=== PATIENT | male | born 1985 | race African-American/Black ===

== ENCOUNTER 2017-08-22 01:50 | Emergency (ER) | payer SELFPAY ==
[~2017-08-22] VITALS: Ht 175.3 cm; Wt 93.2 kg
[2017-08-22 04:40] LABS: CLARITY URINE CLEAR (CLEAR); COLOR URINE YELLOW (YELLOW); KETONES URINE NEGATIVE (NEGATIVE); LEUKOCYTE ESTERASE URINE NEGATIVE (NEGATIVE); NITRITE URINE NEGATIVE (NEGATIVE); OCCULT BLOOD URINE NEGATIVE (NEGATIVE); PROTEIN URINE NEGATIVE (NEGATIVE); SPECIFIC GRAVITY URINE 1.008 (1.005-1.030); UROBILINOGEN URINE 0.2 E.U./dL (0.2-1.0)
[2017-08-22 04:40] LABS: BASOPHILS % 0.4 % (0.0-2.0); EOSINOPHILS % 0.4 % (0.0-5.0); HEMATOCRIT. 49.4 % (42.0-52.0); HEMOGLOBIN. 16.5 g/dL (14.0-18.0); LYMPHOCYTES % 13.7 % (20.0-50.0); MEAN CORPUSCULAR HEMOGLOBIN 29.1 pg (28.0-32.0); MEAN PLATELET VOLUME 7.6 fl (7.4-10.4); NEUTROPHILS % 74.5 % (40.0-76.0); PLATELET 256 x1000/uL (130-400); RED BLOOD CELL COUNT 5.68 mill/uL (4.7-6.1); RED CELL DISTRIBUTION WIDTH 13.7 % (11.6-14.6)
[2017-08-22 04:44] LABS: CHLORIDE 102 mEq/L (98-107)
[2017-08-22 04:51] LABS: *AMPHETAMINES SCREEN URINE PRESUMTIVE POSITIVE (NEGATIVE); *BARBITURATES SCREEN URINE NEGATIVE (NEGATIVE); *BENZODIAZEPINES SCREEN URINE NEGATIVE (NEGATIVE); *COCAINE SCREEN URINE NEGATIVE (NEGATIVE); CANNABINOID URINE SCREEN PRESUMTIVE POSITIVE (NEGATIVE); METHADONE URINE SCREEN NEGATIVE (NEGATIVE); OPIATES URINE SCREEN NEGATIVE (NEGATIVE); PHENCYCLIDINE URINE SCREEN NEGATIVE (NEGATIVE)
[2017-08-22 04:53] LABS: CARBON DIOXIDE 25 mEq/L (21-32); ETHANOL BLOOD < 10 mg/dL
[2017-08-22 07:44] VITALS: BP 123/81
== END 2017-08-22 07:45 | disposition home or self-care (01) ==
LOC: ER 03:19
DX: F19.10 Other psychoactive substance abuse, uncomplicated (principal); F12.10 Cannabis abuse, uncomplicated; Z98.890 Other specified postprocedural states
CPT/HCPCS: 36415; 71010; 80053; 80305; 81003; 83690; 85025; 93005; 99285; G0482; Z7610

== ENCOUNTER 2018-03-25 15:16 | Emergency (ER) | payer MEDICAID ==
[~2018-03-25] VITALS: Ht 177.8 cm; Wt 78.0 kg
[2018-03-25 15:17] VITALS: BP 109/71
== END 2018-03-25 15:38 | disposition left against medical advice (07) ==
LOC: ER 15:20
DX: R51 Headache (principal)
CPT/HCPCS: 99283